=== PATIENT | female | born 1970 | race Caucasian/White ===

== ENCOUNTER 2017-03-29 13:47 | Emergency (ER) | payer OTHER ==
[~2017-03-29] VITALS: Ht 165.1 cm; Wt 127.3 kg
[2017-03-29] MEDS ORDERED: SOD CHLORIDE 0.9% 1,000 ML IV STA (13:51)
[2017-03-29] MEDS ORDERED: LORAZEPAM 2 MG INJ IV ONE ×2 (14:00→16:30)
[2017-03-29 14:03] VITALS: Ht 165.1 cm; Wt 127.3 kg
[2017-03-29 14:25] LABS: BASOPHILS % 0.3 % (0.0-2.0); EOSINOPHILS % 0.1 % (0.0-7.0); HEMATOCRIT 38.2 % (37.0-47.0); HEMOGLOBIN 12.6 g/dl (12.0-16.0); LYMPHOCYTES # 1.2 10^3/ul (0.8-2.9); LYMPHOCYTES % 10.5 % (15.0-51.0); MEAN CORPUSCULAR HEMOGLOBIN 27.3 pg (29.0-33.0); MEAN CORPUSCULAR VOLUME 82.7 fl (82.0-101.0); MEAN PLATELET VOLUME 10.2 fl (7.4-10.4); MONOCYTE # 0.4 10^3/ul (0.3-0.9); MONOCYTES % 3.5 % (0.0-11.0); NEUTROPHILS % 85.2 % (39.0-77.0); PLATELET COUNT 283 10^3/UL (140-415); RED BLOOD COUNT 4.62 10^6/ul (4.20-5.40); RED CELL DISTRIBUTION WIDTH 13.8 % (11.5-14.5); WHITE BLOOD COUNT 11.8 10^3/ul (4.8-10.8)
[2017-03-29 14:44] LABS: ALANINE AMINOTRANSFERASE 30 IU/L (13-69); ALBUMIN/GLOBULIN RATIO 1.11; ALKALINE PHOSPHATASE 56 IU/L (42-121); ANION GAP 12 (8-16); ASPARTATE AMINO TRANSFERASE 19 IU/L (15-46); BILIRUBIN,INDIRECT 0.2 mg/dl (0-1.1); BILIRUBIN,TOTAL 0.2 mg/dl (0.2-1.3); BLOOD UREA NITROGEN 9 mg/dl (7-20); CALCIUM 8.7 mg/dl (8.4-10.2); CARBON DIOXIDE 26 mmol/L (21-31); CHLORIDE 102 mmol/L (97-110); CREATININE 0.64 mg/dl (0.44-1.00); GLUCOSE 121 mg/dl (70-220); POTASSIUM 3.9 mmol/L (3.5-5.1); SODIUM 136 mmol/L (135-144); TOTAL PROTEIN 7.6 g/dl (6.1-8.1)
[2017-03-29 14:56] LABS: ACETAMINOPHEN < 10.0 ug/ml (10.0-30.0); ETHANOL < 10.0 mg/dl; SALICYLATE < 1.0 mg/dl (5.0-30.0); TROPONIN-I < 0.012 ng/ml (0.00-0.12)
[2017-03-29] MEDS ORDERED: SOD CHLORIDE 0.9% 1,000 ML IV ONE (16:30)
[2017-03-29] MEDS ORDERED: LEVETIRACETAM 1000 MG (PMX) 100 ML IVPB ONE (16:30)
--- NOTE | 2017-03-29 16:41 | ERA ---
ER Documentation Chief Complaint Date/Time DATE: 03/29/17 TIME: 16:30 Chief Complaint BIB R39, COMBATIVE, REFUSE TO ANSWER QUESTIONS HPI 46-year-old woman brought in by EMS after being found in the back of an uber cab unresponsive. Her eyes were closed, and she had no response to voice or painful stimuli. EMS initially suspected opioid overdose and administered naloxone with no real effect. They state they found a bottle of alprazolam tablets. After the patient's mental status improved she was verbally combative , agitated, and not answering any of their questions, she could not provide a name, a date, or where she was headed. She appeared to them confused and was initially not stable enough to ambulate. They restrained her and transported her here immediately, en route they did check a blood sugar which was normal. She had no complaints of chest pain or headache, no vomiting, no loss of bowel or bladder control. ROS All systems reviewed and are negative except as per history of present illness. Medications Home Meds Unable to Obtain Active Prescriptions or Reported Meds Allergies Allergies: Coded Allergies: Unknown: Unable to obtain (Unverified , 03/29/17) PMhx/Soc Medical and Surgical Hx: Unable to obtain Hx Alcohol Use: Yes Hx Substance Use: Yes Hx Tobacco Use: No Smoking Status: Unknown if ever smoked FmHx Family History: No diabetes Physical Exam Vitals Vital Signs Date Time Temp Pulse Resp B/P Pulse Ox O2 Delivery O2 Flow Rate FiO2 03/29/17 18:21 98.6 88 18 129/76 98 03/29/17 18:06 98.6 80 18 129/71 99 03/29/17 17:51 98.6 88 18 134/66 99 03/29/17 16:09 98.4 95 18 106/64 99 03/29/17 15:54 98.4 98 18 105/65 99 03/29/17 15:39 98.6 94 18 108/66 99 03/29/17 15:24 98.5 102 20 114/68 99 03/29/17 15:09 98.5 100 18 110/64 99 03/29/17 14:54 98.5 96 18 105/58 99 03/29/17 14:39 98.5 98 18 104/55 99 03/29/17 14:03 98.4 87 20 118/56 97 Physical Exam GENERAL: Well-developed, well-nourished, agitated, afebrile, combative appears postictal HEENT: Moist mucous membranes, pink conjunctiva, no cervical spine tenderness or step-off deformities, no goiter, no jaundice or icterus, extraocular movements intact without pain. No submandibular induration, and no pharyngeal erythema NEURO: Not answering my questions, cranial nerves II through XII intact bilaterally, pupils equal round reactive to light, no focal deficits or facial asymmetry, sensation intact distally Strength 5/5 in upper and lower extremities bilaterally CARDIAC: Regular rate and rhythm, no murmurs rubs or gallops LUNGS: Clear bilaterally no wheezing crackles or stridor ABDOMEN: Soft nontender, no guarding, no rigidity, no rebound, no psoas sign no obturator sign. Normoactive bowel sounds SKIN: Warm and dry to touch, no abrasions, contusions, or hematomas, no lacerations, no ecchymosis, no target lesions, and without ulcers EXTREMITIES: No clubbing cyanosis or edema, calves are bilaterally symmetrical, no Homans sign, no popliteal cord sign. Distal pulses equal and bilateral PSYCH: Agitated Result Diagram: 03/29/17 1415 03/29/17 1415 Results 24 hrs Laboratory Tests Test 03/29/17 14:15 03/29/17 18:00 White Blood Count 11.810^3/ul Red Blood Count 4.6210^6/ul Hemoglobin 12.6g/dl Hematocrit 38.2% Mean Corpuscular Volume 82.7fl Mean Corpuscular Hemoglobin 27.3pg Mean Corpuscular Hemoglobin Concent 33.0g/dl Red Cell Distribution Width 13.8% Platelet Count 06209^3/UL Mean Platelet Volume 10.2fl Neutrophils % 85.2% Lymphocytes % 10.5% Monocytes % 3.5% Eosinophils % 0.1% Basophils % 0.3% Nucleated Red Blood Cells % 0.0/100WBC Neutrophils # 10.010^3/ul Lymphocytes # 1.210^3/ul Monocytes # 0.410^3/ul Eosinophils # 0.010^3/ul Basophils # 0.010^3/ul Nucleated Red Blood Cells # 0.010^3/ul Sodium Level 136mmol/L Potassium Level 3.9mmol/L Chloride Level 102mmol/L Carbon Dioxide Level 26mmol/L Anion Gap 12 Blood Urea Nitrogen 9mg/dl Creatinine 0.64mg/dl Glucose Level 121mg/dl Calcium Level 8.7mg/dl Total Bilirubin 0.2mg/dl Direct Bilirubin 0.00mg/dl Indirect Bilirubin 0.2mg/dl Aspartate Amino Transf (AST/SGOT) 19IU/L Alanine Aminotransferase (ALT/SGPT) 30IU/L Alkaline Phosphatase 56IU/L Troponin I < 0.012ng/ml Total Protein 7.6g/dl Albumin 4.0g/dl Globulin 3.60g/dl Albumin/Globulin Ratio 1.11 Lipase 87U/L Salicylates Level < 1.0mg/dl Acetaminophen Level < 10.0ug/ml Ethyl Alcohol Level < 10.0mg/dl Urine Color STRAW Urine Clarity CLEAR Urine pH 7.0 Urine Specific [place] 1.011 Urine Ketones NEGATIVEmg/dL Urine Nitrite NEGATIVEmg/dL Urine Bilirubin NEGATIVEmg/dL Urine Urobilinogen NEGATIVEmg/dL Urine Leukocyte Esterase NEGATIVELeu/ul Urine Hemoglobin NEGATIVEmg/dL Urine Glucose NEGATIVEmg/dL Urine Total Protein NEGATIVEmg/dl Urine Opiates Screen Negative Urine Barbiturates Negative Urine Amphetamines Screen Negative Urine Benzodiazepines Screen Negative Urine Cocaine Screen Negative Urine Cannabinoids Negative Current Medications Medications (Trade) Dose Ordered Sig/Briana Route PRN Reason Start Time Stop Time Status Last Admin Dose Admin Sodium Chloride (NS) 1,000 ml @ 1,000 mls/hr Q1H STAT IV 03/29/17 13:51 03/29/17 14:50 DC 03/29/17 14:43 Lorazepam 1 mg 1 mg ONCE ONCE IV 03/29/17 14:00 03/29/17 14:01 DC 03/29/17 14:43 Sodium Chloride 1,000 ml @ 1,000 mls/hr Q1H ONCE IV 03/29/17 16:30 03/29/17 17:29 DC 03/29/17 16:30 Levetiracetam (Keppra 1,000mg/ 100ml (Pmx)) 100 ml @ 400 mls/hr ONCE ONCE IVPB 03/29/17 16:30 03/29/17 16:44 DC 03/29/17 16:30 Lorazepam (Ativan) 1 mg ONCE ONCE IV 03/29/17 16:30 03/29/17 16:33 DC 03/29/17 16:30 Procedures/MDM Patient was confused, appeared postictal, agitated, combative. She was unable to answer simple questions and given her altered mentation while in the taxi just prior to arrival I decided to restrain her and pursue medical evaluation. She was placed in four-point upper and lower restraints for hour and her protection, and IV line was established and she was given 1 L normal saline intravenously and lorazepam 1 mg IV for medical sedation. EKG performed, read by me: 95 bpm, normal sinus rhythm, normal axis, no acute ST segment changes, narrow QRS complex, with good R-wave progression in precordial leads. CBC and electrolytes were normal, liver function tests were normal, troponin was negative. Aspirin, Tylenol, alcohol levels were negative. Urine analysis urine drug screens are pending I will follow-up. Observation Note: Time: 3 hours Family Hx: No Hypertension Evaluation: Multiple exams showed improving symptoms and improvement in mental status. She had no seizures during her stay here in the ED. Her vital signs remained normal and she was finally able to answer all my questions and follow commands. She stated she does have a history of seizure disorder and suffered from a tonic-clonic seizure while in the back of the [employer] car today. She states she uses oxcarbazepine for seizure control and she sometimes uses benzodiazepines, specifically alprazolam. I removed restraints and consider discharge home to follow-up with PMD and neurology although just prior to discharge patient experienced seizure activity and was helped down to the floor , she did not suffer any head or neck injury or trauma. CT scan of the brain was performed that was negative for acute bleed mass or shift. I administered another liter normal saline intravenously, another dose of lorazepam 1 mg IV, and Keppra 1 g IV. Patient will be admitted to telemetry setting for continued medical management and neurology consultation. I spoke to [facility] physician regarding the patient's presentation, symptomatology, and ED management today. They stated and faxed she may suffer from seizures and has had previous brain imaging including MRI of the brain which was unremarkable. They stated a recent neurology consultation stated she may have somatization disorder causing seizure -like activity instead of real seizures. Given what happened today they did accept the patient for transfer and admission, [facility] authorization #[id number] A few hours after [facility] accepted the patient the patient's came to the ED and requested she be discharged. I explained to the patient and her was at the bedside that leaving AGAINST MEDICAL ADVICE, given her overall presentation today, is dangerous and may result in serious head injury or traumatic brain injury if she were to fall and have another seizure, it may cause delay in diagnosis or other serious sequela if she were to have yet another seizure such as cardiac arrest, respiratory arrest, status epilepticus, and even . They had a long discussion between themselves and decided despite the risks they would leave AGAINST MEDICAL ADVICE and follow-up with her [facility] physician for reevaluation. Myself and the patient's nurse again reiterated the risks associated with leaving AMA and tried convincing them to stay, but patient and kindly refused. Differential diagnoses considered, included but not limited to acute coronary syndrome, pulmonary embolism, aortic dissection, abdominal aortic aneurysm, sepsis, stroke, intracranial hemorrhage, meningitis, encephalitis, pneumonia, appendicitis, cholecystitis, bowel obstruction, pyelonephritis, nephrolithiasis , cystitis, as well as metabolic, hematologic, and electrolyte abnormalities. As well as abscess, cellulitis, fractures, and dislocations. Departure Diagnosis: Primary Impression: Intractable seizures Additional Impressions: Benzodiazepine withdrawal Qualified Code: F13.231 - Benzodiazepine withdrawal with delirium Acute encephalopathy Postictal state Ruled Out: Seizure Condition: Stable Patient Instructions: Seizure, Recurrent [Adult] PRINCESS BUCHANAN MD Mar 29, 2017 16:41
[2017-03-29 18:54] LABS: ADD UMIC NO; UR ASCORBIC ACID 20 mg/dL (NEGATIVE); UR BILIRUBIN (Dip) NEGATIVE (NEGATIVE); UR BLOOD (Dip) NEGATIVE (NEGATIVE); UR CLARITY CLEAR (CLEAR); UR COLOR STRAW (YELLOW); UR GLUCOSE (Dip) NEGATIVE (NEGATIVE); UR KETONES (Dip) NEGATIVE (NEGATIVE); UR LEUKOCYTE ESTERASE (Dip) NEGATIVE Leu/ul (NEGATIVE); UR NITRITE (Dip) NEGATIVE (NEGATIVE); UR SPECIFIC GRAVITY (Dip) 1.011 (1.003-1.030); UR TOTAL PROTEIN (Dip) NEGATIVE (NEGATIVE); UR UROBILINOGEN (Dip) NEGATIVE (NEGATIVE)
[2017-03-29 19:27] LABS: BARBITURATES Negative (NEGATIVE); BENZODIAZEPINES Negative (NEGATIVE); CANNABINOIDS Negative (NEGATIVE); COCAINE Negative (NEGATIVE); OPIATES Negative (NEGATIVE)
== END 2017-03-29 19:12 | disposition left against medical advice (07) ==
LOC: E/R 13:47
DX: G40.401 Other generalized epilepsy and epileptic syndromes, not intractable, with status epilepticus (principal); F13.231 Sedative, hypnotic or anxiolytic dependence with withdrawal delirium; G93.40 Encephalopathy, unspecified; R40.2142 Coma scale, eyes open, spontaneous, at arrival to emergency department; R40.2242 Coma scale, best verbal response, confused conversation, at arrival to emergency department; R40.2362 Coma scale, best motor response, obeys commands, at arrival to emergency department
CPT/HCPCS: 80053; 80306; 80307; 81003; 83690; 84484; 85025; 96374; 96375; 96376; 99285; J1953; J2060; J7030